=== PATIENT | female | born 1975 ===

== ENCOUNTER → 2023-08-24 | Emergency (ER) | payer MEDICAID ==
[~2023-08-24] VITALS: Ht 157.5 cm; Wt 90.0 kg
[2023-08-24 12:31] VITALS: BP 125/88; PULSE 67; RESP 18; TEMP 98.2
== END | disposition still patient (30) ==
LOC: EMS 12:26
DX: Z76.0 Encounter for issue of repeat prescription (principal); Z53.21 Procedure and treatment not carried out due to patient leaving prior to being seen by health care provider
CPT/HCPCS: 99281; Z7502